=== PATIENT | female | born 1995 | race Caucasian/White ===

== ENCOUNTER 2016-08-04 20:21 | Emergency (ER) | payer BC ==
--- NOTE | 2016-08-04 21:27 | PD ---
HPI Chief Complaint Crampy pain and watery discharge after a [address] today from the [facility] Date Seen: Aug 04, 2016 Travel History International Travel<30 Days: No Contact w/Intl Traveler<30Days: No Known Affected Area: No History of Present Illness HPI Patient is 21-year-old white female at 31 weeks presents planning of crampy pain and watery discharge after having read in the car for 9 hours from the [facility] back to [place], she denies bleeding. heart rate tracing is reactive and she is not rusty regular just occasional small amount of irritability not really contractions, her amnio sure is negative today. She sees Dr. Tavares for care Para: 0 : 1 History Past Medical History Medical History: Denies Significant Hx Past Surgical History Surgical History: No Previous Surgery Social History Alcohol Use: No Tobacco Use: No Substance Abuse: No Allergies-Medications (Allergen,Severity, Reaction): Coded Allergies: Bee Sting (Verified Allergy, Unknown, DIFFICULTY BREATHING, 07/23/16) Penicillin (Verified Allergy, Unknown, HIVES, 07/23/16) Review of Systems General / Constitutional: No: Fever, Weight Gain, Chills, Other Eyes: No: Diploplia, Blurred Vision, Visual changes, Pain, Photophobia HENT: No: Headaches, Vertigo, Lightheadedness Cardiovascular: No: Irregular Rhythm, Chest Pain or Discomfort, Palpitations, Tachycardia, Syncope, Varicosities, Edema, Cyanosis Respiratory: No: Cough, Short of Breath, Other Gastrointestinal: Abdominal Pain, No: Nausea, Vomiting, Diarrhea Genitourinary: No: Decreased Urinary Output, Oliguria Musculoskeletal: No: Limited ROM, Weakness, Cramping, Edema, Pain Skin: No Rash, No Itching, No Dryness, No Lumps, No Change in Pigmentation, No Change in Nails, No Alopecia, No Lesions Neurologic: No: Weakness, Dizziness, Syncope, Focal Abnormalities, Coordination Problem, Headache, Slurred Speech, Seizures Psychiatric: No: Depression, Suicidal Ideations, Homicidal Ideation Endocrine: No: Heat Intolerance, Cold Intolerance, Polydipsia, Polyuria, Other Physical Exam Narrative GENERAL: Well-nourished, well-developed patient. SKIN: Warm and dry. HEAD: Normocephalic and atraumatic. EYES: No scleral icterus. No injection or drainage. ENT: No nasal drainage noted. Mucous membranes pink. Airway patent. NECK: Supple, trachea midline. No JVD. CARDIOVASCULAR: Regular rate and rhythm without murmurs, gallops, or rubs. RESPIRATORY: Breath sounds equal bilaterally. No accessory muscle use. BREASTS: Bilateral exam showed no masses , no retractions, no nipple discharge. ABDOMEN/GI: Abdomen soft, non-tender, bowel sounds present, no rebound, no guarding Gravid to [30-] weeks size Fundal Height: [-31] GENITOURINARY: External Genitalia: intact and normal in appearance BUS glands: [-] Cervix: [-] Dilatation: [-0] Effacement: [-0] Station: [-3] Membranes: [intact ]amnisure neg Uterine Contractions: [none-] FHT's: Category: [1-] Baseline: [-144] Reactive: [-yes] Variability: [mod-] Decels: [0-] EXTREMITIES: No cyanosis or edema. BACK: Nontender without obvious deformity. No CVA tenderness. NEUROLOGICAL: Awake and alert. Motor and sensory grossly within normal limits. Five out of 5 muscle strength in all muscle groups. Normal speech. Data Data Labs Amnio sure negative MDM Interpretation(s) Patient is 21-year-old white female at 31 weeks presents planning of crampy pain after driving in a car for 9 hours and watery discharge for several days. Amnio sure is negative tonight she has no further leakage per vagina. She denies bleeding. She's not rusty regularly only occasional small blip on the monitor. Patient states she just finished a round of Macrobid for UTI so another urinalysis was not done tonight Plan Plan to discharge the patient home to by mouth hydrate, use Tylenol liberally for pain, heating pad or hot bath for comfort in the lower abdominal area. She needs a work note 48 hours to allow bedrest and recovery. She is follow-up with her OB provider after that. Diagnosis Diagnosis: Primary Impression: Lower abdominal pain Additional Impression: No leakage of amniotic fluid into vagina Disposition: 01 DISCHARGE HOME Condition: Stable Juanjose Moss II, MD Aug 04, 2016 21:27
== END 2016-08-04 21:58 | disposition home or self-care (01) ==
LOC: HOBED 20:21
DX: Z03.71 Encounter for suspected problem with amniotic cavity and membrane ruled out (principal); O26.893 Other specified pregnancy related conditions, third trimester; R10.30 Lower abdominal pain, unspecified; Z3A.31 31 weeks gestation of pregnancy
CPT/HCPCS: 84112; 99282

== ENCOUNTER 2016-10-05 17:50 | Inpatient (IN) | payer BC ==
[2016-10-05] VITALS (8 sets, daily range): BP systolic 134–146; BP diastolic 73; PULSE 82–96; RESP 18; TEMP 98.5–98.7
[~2016-10-05] VITALS: Ht 167.6 cm; Wt 96.0 kg
[2016-10-05] MEDS ORDERED: SODIUM CHLOR 0.9% 1000 ML INJ 1,000 ML OTHER PRN (18:59)
[2016-10-05] MEDS ORDERED: LACTATED RINGER'S 1000 ML INJ 1,000 ML IV PRN (18:59)
[2016-10-05] MEDS: LACTATED RINGER'S 1000 ML INJ 1,000 ML IV SCH (18:59)
[2016-10-05] MEDS ORDERED: SODIUM CHLORID 0.9% 500 ML INJ 500 ML IV PRN (19:00)
[2016-10-05] MEDS ORDERED: LIDOCAINE HCL 1% 50 ML VIAL INFIL PRN (19:00)
[2016-10-05] MEDS ORDERED: MINERAL OIL 10 ML VIAL TOPICAL PRN (19:00)
[2016-10-05] MEDS ORDERED: LIDOCAINE HCL 1% 50 ML VIAL I-DERMAL PRN (19:00)
[2016-10-05] MEDS ORDERED: CITRIC ACID-SODIUM CITRATE LIQ 30 ML UDC PO SCH (19:00)
[2016-10-05] MEDS ORDERED: SODIUM CHLORIDE 0.9% FLUSH 10 ML FLUSH IV FLUSH PRN (19:00)
[2016-10-05] MEDS ORDERED: MISOPROSTOL 25 MCG SUPP VAGINAL ONE (19:00)
--- NOTE | 2016-10-05 19:13 | HHI.HP ---
HPI Chief Complaint post term labor induction, gestational hypertension diagnosed at office visit today Date Seen: Oct 05, 2016 Time Seen: 18:40 Travel History International Travel<30 Days: No Contact w/Intl Traveler<30Days: No Known Affected Area: No History of Present Illness HPI 21 yo with EDC 10/01/16, presents for scheduled term labor induction at 40w4d for postdates and diagnosed with gestational HTN in office today. BPs 130s-148/770-86 in office over past 3 weeks. No symptoms, no headache, no blurred vision, udip in office negative for protein. Pt c/o pelvic pressure, no regular contractions, no VB, no LOF. Endorses +FM. Weeks Gestation: 40 Para: 0 : 1 Last Menstrual Period: Dec 27, 2015 Miscarriage: 0 : 0 History Past Medical History Narrative Medical gestational hypertension Obstetric History Obstetric History G1 = current Past Surgical History Narrative Surgical appendectomy Family History Family History: Negative Social History Alcohol Use: No Tobacco Use: No Substance Abuse: No Allergies-Medications (Allergen,Severity, Reaction): Coded Allergies: bee venom protein (honey bee) (Unverified Allergy, Unknown, DIFFICULTY BREATHING, 09/22/16) penicillin G (Unverified Allergy, Unknown, HIVES, 09/22/16) Review of Systems General / Constitutional: Weight Gain, No: Fever, Chills, Other Eyes: No: Diploplia, Blurred Vision, Visual changes, Pain, Photophobia HENT: No: Headaches, Vertigo, Lightheadedness Cardiovascular: No: Irregular Rhythm, Chest Pain or Discomfort, Palpitations, Tachycardia, Syncope, Varicosities, Edema, Cyanosis Respiratory: No: Cough, Short of Breath, Other Gastrointestinal: No: Nausea, Vomiting, Diarrhea Genitourinary: Pelvic Pain (pressure), No: Decreased Urinary Output, Oliguria Musculoskeletal: No: Limited ROM, Weakness, Cramping, Edema, Pain Skin: No Rash, No Itching, No Dryness, No Lumps, No Change in Pigmentation, No Change in Nails, No Alopecia, No Lesions Neurologic: No: Weakness, Dizziness, Syncope, Focal Abnormalities, Coordination Problem, Headache, Slurred Speech, Seizures Psychiatric: No: Depression, Suicidal Ideations, Homicidal Ideation Endocrine: No: Heat Intolerance, Cold Intolerance, Polydipsia, Polyuria, Other Physical Exam Narrative GENERAL: Well-nourished, well-developed patient. Overweight SKIN: Warm and dry. HEAD: Normocephalic and atraumatic. EYES: No scleral icterus. No injection or drainage. ENT: No nasal drainage noted. Mucous membranes pink. Airway patent. NECK: Supple, trachea midline. No JVD. CARDIOVASCULAR: Regular rate and rhythm without murmurs, gallops, or rubs. RESPIRATORY: Breath sounds equal bilaterally. No accessory muscle use. BREASTS: deferred. ABDOMEN/GI: Abdomen soft, non-tender, bowel sounds present, no rebound, no guarding Gravid to [40] weeks size Fundal Height: [41] GENITOURINARY: External Genitalia: intact and normal in appearance BUS glands: [wnl] Cervix: [posterior] Dilatation: [1-2] Effacement: [th] Station: [-3] Presentation: [vtx] Membranes: [intact] Uterine Contractions: [irreg] FHT's: Category: [I] Baseline: [130s] Reactive: [y] Variability: [y] Decels: [n] EXTREMITIES: No cyanosis or edema. BACK: Nontender without obvious deformity. No CVA tenderness. NEUROLOGICAL: Awake and alert. Motor and sensory grossly within normal limits. Five out of 5 muscle strength in all muscle groups. Normal speech. Caprini VTE Risk Assessment Caprini VTE Risk Assessment: No/Low Risk (score <= 1) Caprini Risk Assessment Model Point Value = 1 Point Value = 2 Point Value = 3 Point Value = 5 Age 41-60 Minor surgery BMI > 25 kg/m2 Swollen legs Varicose veins or History of unexplained or recurrent spontaneous Oral contraceptives or hormone replacement Sepsis (< 1 month) Serious lung disease, including pneumonia (< 1 month) Abnormal pulmonary function Acute myocardial infarction Congestive heart failure (< 1 month) History of inflammatory bowel disease Medical patient at bed rest Age 61-74 Arthroscopic surgery Major open surgery (> 45 min) Laparoscopic surgery (> 45 min) Malignancy Confined to bed (> 72 hours) Immobilizing plaster cast Central venous access Age >= 75 History of VTE Family history of VTE Factor V Leiden Prothrombin [id number] Lupus anticoagulant Anticardiolipin antibodies Elevated serum homocysteine Heparin-induced thrombocytopenia Other congenital or acquired thrombophilia Stroke (< 1 month) Elective arthroplasty Hip, pelvis, or leg fracture Acute spinal cord injury (< 1 month) Prophylaxis Regimen Total Risk Factor Score Risk Level Prophylaxis Regimen 0-1 Low Early ambulation 2 Moderate Order ONE of the following: *Sequential Compression Device (SCD) *Heparin 5000 units SQ BID 3-4 Higher Order ONE of the following medications: *Heparin 5000 units SQ TID *Enoxaparin/Lovenox 40 mg SQ daily (WT < 150 kg, CrCl > 30 mL/min) *Enoxaparin/Lovenox 30 mg SQ daily (WT < 150 kg, CrCl > 10-29 mL/min) *Enoxaparin/Lovenox 30 mg SQ BID (WT < 150 kg, CrCl > 30 mL/min) AND/OR *Sequential Compression Device (SCD) 5 or more Highest Order ONE of the following medications: *Heparin 5000 units SQ TID (Preferred with Epidurals) *Enoxaparin/Lovenox 40 mg SQ daily (WT < 150 kg, CrCl > 30 mL/min) *Enoxaparin/Lovenox 30 mg SQ daily (WT < 150 kg, CrCl > 10-29 mL/min) *Enoxaparin/Lovenox 30 mg SQ BID (WT < 150 kg, CrCl > 30 mL/min) AND *Sequential Compression Device (SCD) Data Data Vital Signs Reviewed: Yes Orders Orders Admit To Inpatient (10/05/16 ) Code Status (10/05/16 18:59) Vital Signs (Adult) .Per protocol (10/05/16 18:59) Activity Oob Ad Qiana (10/05/16 18:59) Heart (10/05/16 18:59) Amnioinfusion (10/05/16 18:59) Urinary Catheter Management .ONCE (10/05/16 18:59) Lactated Ringer's 1000 Ml Inj (Lr 1000 M (10/05/16 18:59) Lactated Ringer's 1000 Ml Inj (Lr 1000 M (10/05/16 18:59) Sodium Chlorid 0.9% 500 Ml Inj (Ns 500 M (10/05/16 19:00) Sodium Chlor 0.9% 1000 Ml Inj (Ns 1000 M (10/05/16 19:19) Lidocaine 1% Inj (50 Ml) (Xylocaine 1% I (10/05/16 19:00) Citric Acid-Sodium Citrate Liq (Bicitra (8/28/17 19:00) Fentanyl Inj (Fentanyl Inj) (10/05/16 19:00) Fentanyl Inj (Fentanyl Inj) (10/05/16 19:00) Vancomycin Inj (Vancomycin Inj) (10/05/16 19:00) Complete Blood Count With Diff (10/05/16 18:59) Hold Clot (10/05/16 18:59) Abo/Rh Blood Type (10/05/16 18:59) Urinalysis - C+S If Indicated (10/05/16 18:59) Resp Oxygen Non Rebreathe Mask (10/05/16 ) ^ Epidural / Intrathecal Infus (10/05/16 18:59) Oxytocin 30 Units-500ml Premix (Pitocin (10/05/16 19:00) Lidocaine 1% Inj (50 Ml) (Xylocaine 1% I (10/05/16 19:00) Light Mineral Oil (Muri-Lube Oil) (10/05/16 19:00) Inpatient Certification (10/05/16 ) Specimen To Be Collected PRN (10/05/16 18:59) Diet Regular Basic (10/05/16 Dinner) ^ Labor Induction (10/05/16 18:59) ^ Saline Lock (10/05/16 18:59) ^ Vaginal Insert (10/05/16 18:59) ^ Vaginal Lavage (10/05/16 18:59) Heart (10/05/16 18:59) Sodium Chloride 0.9% Flush (Ns Flush) (10/05/16 21:00) Sodium Chloride 0.9% Flush (Ns Flush) (10/05/16 19:00) Sodium Chlor 0.9% 1000 Ml Inj (Ns 1000 M (10/05/16 18:59) Misoprostol Supp (Cytotec Supp) (10/05/16 19:00) Misoprostol Supp (Cytotec Supp) (10/05/16 23:00) Group B Strep: Positive Assessment/Plan Problem List: (1) Gestational hypertension affecting first ICD Codes: O13.9 - Gestational [-induced] hypertension without significant proteinuria, unspecified trimester Status: Acute (2) Post-term , 40-42 weeks of gestation ICD Codes: O48.0 - Post-term Status: Acute Assessment and Plan 21 yo with IUP at 40w4d admit for IOL at postdates due to new dx GHTN 1) IOL: start with cytotec vaginally, re-evaluate as needed for AROM/pitocin; pt aware of risks of IOL, including risk of failure/distress/need for , verbalizes understanding & consents to IOL 2) GHTN: mild range, no symptoms, negative udip in office today, continue to monitor 3) GBS +: PCN allergy, no sensitivity testing, Vancomycin ordered 4) status: Cat I traincg, male, vertex, EFW 8# Discharge Planning routine, 2-3d PP Alannah Danielson MD Oct 05, 2016 19:13
[2016-10-05] MEDS ORDERED: SODIUM CHLOR 0.9% 1000 ML INJ 1,000 ML IV PRN (19:19)
[2016-10-05 19:28] LABS: BACTERIA, URINE MANY /hpf; BLOOD, URINE NEG (NEG); COMMENT (UR) CULTURE INDICATED; CULTURE IF INDICATED CULTURE INDICATED; GLUCOSE,URINE NEG (NEG); KETONE, URINE NEG (NEG); MUCUS URINE FEW /lpf (OCC); NITRITE,URINE NEG (NEG); PH, URINE 6.5 (5.0-8.5); SQUAMOUS EPITHELIAL CELL URINE 1 /hpf (0-5); URINE COLOR YELLOW (YELLW/STRAW)
[2016-10-05 19:29] LABS: AUTOMATED NEUTROPHIL # 9.5 TH/MM3 (1.8-7.7); BASOPHIL % 0.2 % (0.0-2.0); EOSINOPHIL # 0.1 TH/MM3 (0-0.4); EOSINOPHIL % 0.5 % (0.0-4.0); HEMATOCRIT 35.1 % (35.0-46.0); HEMO FLAGS DIFF FINAL; LYMPH % 14.5 % (9.0-44.0); LYMPHOCYTE # 1.8 TH/MM3 (1.0-4.8); MEAN CORPUSCULAR HEMOGLOBIN 28.3 PG (27.0-34.0); MEAN CORPUSCULAR HGB CONC 32.9 % (32.0-36.0); MONO % 8.8 % (0.0-8.0); PLATELET COUNT 342 TH/MM3 (150-450); RED BLOOD COUNT 4.08 MIL/MM3 (4.00-5.30); RED CELL DISTRIBUTION WIDTH 13.7 % (11.6-17.2); WHITE BLOOD COUNT 12.5 TH/MM3 (4.0-11.0)
[2016-10-05] MEDS ORDERED: OXYTOCIN 30 UNITS-500ML PREMIX 500 ML IV ONE (21:00)
[2016-10-05] MEDS ORDERED: VANCOMYCIN 1,000 MG/NS 250 ML IV SCH ×2 (21:00)
[2016-10-05] MEDS ORDERED: SODIUM CHLORIDE 0.9% FLUSH 10 ML FLUSH IV FLUSH SCH (21:00)
[2016-10-05] MEDS ORDERED: VANCOMYCIN INJ 1,000 MG in SODIUM CHLORIDE 0.9% INJ 250 ML IV SCH (21:00)
[2016-10-05] MEDS ORDERED: MISOPROSTOL 25 MCG SUPP VAGINAL PRN (23:00)
[2016-10-05] MEDS ORDERED: PREN29TA PO (23:21)
[2016-10-06] VITALS (64 sets, daily range): BP systolic 116–163; BP diastolic 56–97; PULSE 70–125; RESP 18; TEMP 97.8–98.8
[2016-10-06] MEDS: LACTATED RINGER'S 1000 ML INJ 1,000 ML IV SCH (02:15)
[2016-10-06] MEDS ORDERED: ONDANSETRON HCL 4 MG/2 ML VIAL ONE (02:43)
[2016-10-06] MEDS ORDERED: ONDANSETRON HCL 4 MG/2 ML VIAL IV PUSH PRN (03:00)
[2016-10-06] MEDS ORDERED: fentaNYL 2MCG-BUPIV 0.125% INJ 100 ML ONE (03:37)
--- NOTE | 2016-10-06 05:22 | HHI.PR ---
ASSEMBLER FINAL Note Note to bedside to evaluate pt strip Cat I, good contraction pattern s/p misoprostol 25mcg PV x 2 overnight SVE 80/-1 to -2; AROM'd clear, now /-1 head well applied anticipate pt counseled Alannah Danielson MD Oct 06, 2016 05:22
[2016-10-06] MEDS ORDERED: OXYTOCIN 30 UNITS-500ML PREMIX 500 ML ONE (06:23)
[2016-10-06] MEDS ORDERED: BENZOCAINE 20% TOPICAL SPRAY 60 ML CAN TOPICAL PRN (07:45)
[2016-10-06] MEDS ORDERED: ONDANSETRON ODT 4 MG TAB PO PRN (07:45)
[2016-10-06] MEDS ORDERED: oxyCODONE/ACETAMINOPHEN 5 MG/325 MG TAB PO PRN ×2 (07:45)
[2016-10-06] MEDS ORDERED: ZOLPIDEM TARTRATE 5 MG TAB PO PRN (07:45)
[2016-10-06] MEDS ORDERED: OXYTOCIN 30 UNITS-500ML PREMIX 500 ML IV SCH (07:45)
[2016-10-06] MEDS ORDERED: WITCH HAZEL 50%/GLYCERIN 12.5% 40 PAD JAR TOPICAL PRN (07:45)
[2016-10-06] MEDS ORDERED: DOCUSATE SODIUM 50 MG/SENNA 8.6 MG TAB PO PRN (07:45)
[2016-10-06] MEDS ORDERED: SODIUM CHLORIDE 0.9% FLUSH 10 ML FLUSH IV FLUSH PRN (07:45)
[2016-10-06] MEDS ORDERED: ALUMINUM/MAGNESIUM/SIMETH 30 ML CUP PO PRN (07:45)
--- NOTE | 2016-10-06 07:49 | PD.OB.DELI ---
Weeks gestation: 40 Gest age assessed date: Oct 06, 2016 Gest age assessed time: 07:47 Pt started active labor?: Yes Active labor start date: Oct 06, 2016 Active labor start time: 03:00 Medical induction of labor?: Yes Medical induction start date: Oct 05, 2016 Medical induction start time: 22:00 Artificial rupture of membrane: Yes Artificial ROM date: Oct 05, 2016 Artifical ROM time: 22:00 Anesthesia: Epidural Episiotomy: None Vaginal Delivery: Normal Presentation: Occiput anterior Nuchal Cord: x1 Delayed cord clamping (45 sec): Yes Infant: Male Delivery date: Oct 06, 2016 Delivery time: 07:49 One Minute : 9 Five Minute : 9 Weight: 7 Placenta: Spontaneous delivery Laceration: No lacerations Estimated blood loss: average Additional Information terminal mecEvelin Gonzalez MD Oct 06, 2016 07:49
[2016-10-06] MEDS: IBUPROFEN 600 MG TAB PO PRN ×3 (08:17→21:44)
[2016-10-06] MEDS ORDERED: SODIUM CHLORIDE 0.9% FLUSH 10 ML FLUSH IV FLUSH SCH (09:00)
[2016-10-06] MEDS ORDERED: DIPHTH/TETANUS/ACEL PERTUSSIS (BOOSTER) 0.5 ML VIAL/PFS IM ONE (16:00)
[2016-10-06] MEDS ORDERED: MEASLES, MUMPS, RUBELLA VACCINE 0.5 ML VIAL SQ ONE (16:00)
[2016-10-06] MEDS: ACETAMINOPHEN 325 MG TAB PO PRN (21:44)
[2016-10-07 04:27] VITALS: BP 128/57; PULSE 82; RESP 18; TEMP 98.7
[2016-10-07] MEDS: IBUPROFEN 600 MG TAB PO PRN ×3 (06:59→23:05)
[2016-10-07] MEDS: ACETAMINOPHEN 325 MG TAB PO PRN ×3 (07:00→23:06)
--- NOTE | 2016-10-07 07:57 | HHI.OB ---
Subjective Post Day: 1 Remarks mom well and resting nursing desires circ baby 24 hours old Objective Vitals/I&O Vital Signs Date Time Temp Pulse Resp B/P (MAP) Pulse Ox O2 Delivery O2 Flow Rate FiO2 10/07/16 04:27 98.7 82 18 128/57 (80) 10/06/16 20:07 98.5 70 18 142/68 (92) 10/06/16 10:55 98.4 87 18 116/71 (86) 10/06/16 09:13 98.7 18 10/06/16 09:12 89 138/86 (103) 10/06/16 08:31 99 128/79 (95) 10/06/16 08:16 90 136/78 (97) 10/06/16 08:01 88 136/80 (98) Objective Remarks GENERAL: Well-nourished, well-developed patient. CARDIOVASCULAR: Regular rate and rhythm without murmurs, gallops, or rubs. RESPIRATORY: Breath sounds equal bilaterally. No accessory muscle use. ABDOMEN/GI: Abdomen soft, non-tender. Fundus: Firm, non-tender at umbilicus. GENITOURINARY: Light to moderate bleeding. EXTREMITIES: No cyanosis or edema, non-tender, without signs of DVT. Medications and IVs Current Medications Medications (Trade) Dose Ordered Sig/Freddy Route Start Time Stop Time Status Last Admin (Xylocaine 1% Inj (50 ml)) 0.1 ml UNSCH X1 PRN I-DERMAL 10/05/16 19:00 10/08/16 18:59 (Bicitra Liq) 30 ml DIE CASTING MACHINE OPERATOR PO 10/05/16 19:00 10/09/16 18:59 (Xylocaine 1% Inj (50 ml)) 10 ml UNSCH X1 PRN INFIL 10/05/16 19:00 10/07/16 18:59 (NS Flush) 2 ml BID IV FLUSH 10/06/16 09:00 (NS Flush) 2 ml UNSCH PRN IV FLUSH 10/06/16 07:45 (Tylenol) 650 mg Q4H PRN PO 10/06/16 07:45 10/07/16 07:00 (Motrin) 600 mg Q6H PRN PO 10/06/16 07:45 10/07/16 06:59 (Percocet 5-325 Mg) 1 tab Q4H PRN PO 10/06/16 07:45 (Percocet 5-325 Mg) 2 tab Q4H PRN PO 10/06/16 07:45 (Americaine 20% Top Spr) 1 spray Q4H PRN TOPICAL 10/06/16 07:45 10/06/16 09:26 (Tucks Pads) 1 applic QID PRN TOPICAL 10/06/16 07:45 10/06/16 09:26 (Lorie-Colace) 2 tab Q12H PRN PO 10/06/16 07:45 (Ambien) 5 mg HS PRN PO 10/06/16 07:45 (Mag-Al Plus Susp Liq) 15 ml Q8H PRN PO 10/06/16 07:45 (Zofran Odt) 4 mg Q6H PRN PO 10/06/16 07:45 Assessment/Plan Problem List: (1) Gestational hypertension affecting first ICD Codes: O13.9 - Gestational [-induced] hypertension without significant proteinuria, unspecified trimester Status: Acute (2) Post-term , 40-42 weeks of gestation ICD Codes: O48.0 - Post-term Status: Acute Assessment and Plan PPD 1 after unremarkable counseled on circ and circ performed anticipate discharge PPD 2 Discharge Planning routine, 2-3d PP Evelin Main MD Oct 07, 2016 07:57
[2016-10-07 08:00] VITALS: BP 118/60; PULSE 84; RESP 18; TEMP 98.8
[2016-10-07] MEDS ORDERED: IBUP-232 PO (08:00)
--- NOTE | 2016-10-07 08:01 | HHI.DCPOC ---
Discharge Care Plan Report Symptoms to Your Doctor -Temperature above 100.5 degrees -Redness, of incision or excessive or foul smelling drainage -Unusual pain or calf pain -Increased vaginal bleeding -Painful or difficulty urinating -Feelings of extreme sadness or anxiety after 2 weeks Goals to Promote Your Health * To prevent worsening of your condition and complications * To maintain your health at the optimal level Directions to Meet Your Goals Take your medications as prescribed Follow your dietary instruction Follow activity as directed Ensure plenty of rest for recovery Drink fluids for hydration Keep your appointments as scheduled Take your immunizations and boosters as scheduled If your symptoms worsen call your PCP, if no PCP go to Urgent Care Center or Emergency Room Smoking is Dangerous to Your Health. Avoid second hand smoke Call the 24-hour crisis hotline for domestic abuse at Evelin Main MD Oct 07, 2016 08:00
[2016-10-07 20:20] VITALS: BP 125/69; PULSE 69; RESP 20; TEMP 98.4
[2016-10-08] MEDS: IBUPROFEN 600 MG TAB PO PRN (05:07)
[2016-10-08] MEDS: ACETAMINOPHEN 325 MG TAB PO PRN (05:08)
--- NOTE | 2016-10-08 07:48 | HHI.OB ---
Subjective Post Day: 2 Remarks no complaints, Objective Vitals/I&O Vital Signs Date Time Temp Pulse Resp B/P (MAP) Pulse Ox O2 Delivery O2 Flow Rate FiO2 10/08/16 01:00 17 10/08/16 01:00 17 10/07/16 20:20 98.4 69 20 125/69 (87) 10/07/16 08:00 84 118/60 (79) 10/07/16 08:00 98.8 18 Objective Remarks GENERAL: Well-nourished, well-developed patient. CARDIOVASCULAR: Regular rate and rhythm without murmurs, gallops, or rubs. RESPIRATORY: Breath sounds equal bilaterally. No accessory muscle use. ABDOMEN/GI: Abdomen soft, non-tender. Fundus: Firm, non-tender at umbilicus. GENITOURINARY: Light to moderate bleeding. EXTREMITIES: No cyanosis or edema, non-tender, without signs of DVT. Medications and IVs Current Medications Medications (Trade) Dose Ordered Sig/Freddy Route Start Time Stop Time Status Last Admin (Xylocaine 1% Inj (50 ml)) 0.1 ml UNSCH X1 PRN I-DERMAL 10/05/16 19:00 10/08/16 18:59 (Bicitra Liq) 30 ml SECURITY CONTROL ASSESSOR PO 10/05/16 19:00 10/09/16 18:59 (NS Flush) 2 ml BID IV FLUSH 10/06/16 09:00 (NS Flush) 2 ml UNSCH PRN IV FLUSH 10/06/16 07:45 (Tylenol) 650 mg Q4H PRN PO 10/06/16 07:45 10/08/16 05:08 (Motrin) 600 mg Q6H PRN PO 10/06/16 07:45 10/08/16 05:07 (Percocet 5-325 Mg) 1 tab Q4H PRN PO 10/06/16 07:45 (Percocet 5-325 Mg) 2 tab Q4H PRN PO 10/06/16 07:45 (Americaine 20% Top Spr) 1 spray Q4H PRN TOPICAL 10/06/16 07:45 10/06/16 09:26 (Tucks Pads) 1 applic QID PRN TOPICAL 10/06/16 07:45 10/06/16 09:26 (Lorie-Colace) 2 tab Q12H PRN PO 10/06/16 07:45 10/07/16 23:05 (Ambien) 5 mg HS PRN PO 10/06/16 07:45 (Mag-Al Plus Susp Liq) 15 ml Q8H PRN PO 10/06/16 07:45 (Zofran Odt) 4 mg Q6H PRN PO 10/06/16 07:45 Assessment/Plan Problem List: (1) Gestational hypertension affecting first ICD Codes: O13.9 - Gestational [-induced] hypertension without significant proteinuria, unspecified trimester Status: Acute (2) Post-term , 40-42 weeks of gestation ICD Codes: O48.0 - Post-term Status: Acute Assessment and Plan PPD 2 after unremarkable counseled on circ and circ performed anticipate discharge PPD 2 Discharge Planning routine, 2-3d PP Attending Attestation pt seen by Lacey Ferrer MD Oct 08, 2016 07:48
[2016-10-08 08:06] VITALS: BP 127/69; PULSE 68; RESP 18; TEMP 97.9
== END 2016-10-08 13:38 | disposition home or self-care (01) | DRG 775 ==
LOC: H2EA 17:50 → H1EA 10-06 09:34
PROVIDERS: ADMIT Obstetrics & Gynecology; ATTEND Obstetrics & Gynecology
PROC: 3E0P7GC Introduction of Other Therapeutic Substance into Female Reproductive, Via Natural or Artificial Opening (ICD-10-PCS; 2016-10-05)
PROC: 10E0XZZ Delivery of Products of Conception, External Approach (ICD-10-PCS; principal; 2016-10-06)
PROC: 10907ZC Drainage of Amniotic Fluid, Therapeutic from Products of Conception, Via Natural or Artificial Opening (ICD-10-PCS; 2016-10-06)
DX: O13.4 Gestational [pregnancy-induced] hypertension without significant proteinuria, complicating childbirth (principal); O48.0 Post-term pregnancy; O77.0 Labor and delivery complicated by meconium in amniotic fluid; O69.81X0 Labor and delivery complicated by cord around neck, without compression, not applicable or unspecified; Z3A.40 40 weeks gestation of pregnancy; Z37.0 Single live birth
CPT/HCPCS: 59025; 81001; 85025; 86592; 86900; 86901; 87086; 90715; J2405; J2590; J3010; J3370; J7050; J7120